=== PATIENT | female | born 1990 | race Caucasian/White ===

== ENCOUNTER 2017-09-17 10:36 | Observation (INO) | payer BC, OTHER ==
[~2017-09-17] VITALS: Ht 175.3 cm; Wt 106.6 kg
--- OUTSIDE RECORDS SUMMARY | 2017-09-17 10:42 | XMS REPORT ---
Author CHE Yang [facility] eClinicalWorks Address Unknown Phone Unavailable Care Team Providers Care Wireless Sales Expert Name Role Phone CHE SAWANT Unavailable Allergies No Known Allergies Problems Problem Type Condition Code Onset Dates Condition Status Assessment Encounter for immunization Z23 Active Medications No Known Medications Procedures Procedure Coding System Code Date SINGLE IMMUNIZATION ADMIN CPT-4 41404 Jul 12, 2016 FLUARIX QUAD P-FREE 3 AND UP .50 2015 CPT-4 44061 Jul 12, 2016 Results No Known Results Immunizations Vaccine Administration Date FLUARIX QUAD P-FREE 3 AND UP .50 2015Jul 12, 2016 Summary Purpose eClinicalWorks Submission
--- OUTSIDE RECORDS SUMMARY | 2017-09-17 10:42 | XMS REPORT ---
Author CHE Yang [facility] eClinicalWorks Address Unknown Phone Unavailable Care Team Providers Care Inspector Material Disposition Name Role Phone CHE SAWANT Unavailable Allergies No Known Allergies Problems Problem Type Condition Code Onset Dates Condition Status Assessment Encounter for immunization Z23 Active Medications No Known Medications Procedures Procedure Coding System Code Date SINGLE IMMUNIZATION ADMIN CPT-4 12902 Jul 01, 2015 FLUARIX QUAD (3 & UP)-GSK-2014 CPT-4 69789 Jul 01, 2015 Results No Known Results Immunizations Vaccine Administration Date FLUARIX QUAD (3 & UP)-GSK-2014Jul 01, 2015 Summary Purpose eClinicalWorks Submission
--- NOTE | 2017-09-17 10:58 | ED Back Pain ---
General Stated Complaint: BACK/ABD PAIN Source of Information: Patient Exam Limitations: No Limitations History of Present Illness Date Seen by Provider: Sep 17, 2017 Time Seen by Provider: 10:55 Initial Comments To ER with low right-sided back pain. This began yesterday as she felt a spasm in the area. She was seen at [facility] care given a shot of Toradol for the pain and Phenergan because she had some associated nausea. Today, the pain has spread to her abdomen and the bumps in the car on the ride here were very painful. She denies fevers or dysuria. She is tachycardic at 140 on arrival to ER walks very slowly as any movement or palpation of the abdomen significantly worsens her pain. Movement of the right hip also worsens the pain. She denies any loss of bowel or bladder control, saddle anesthesia Location: Lumbar Spine Timing/Duration: 1-2 Days Severity: Moderate Associated Symptoms: lower back pain Allergies and Home Medications Allergies Coded Allergies: erythromycin base (Verified Allergy, Unknown, 09/17/17) Constitutional: see HPI, chills, No fever EENTM: see HPI Respiratory: no symptoms reported Cardiovascular: no symptoms reported Gastrointestinal: abdominal pain, nausea Genitourinary: no symptoms reported Musculoskeletal: see HPI, back pain Skin: no symptoms reported Psychiatric/Neurological: No Symptoms Reported Past Pvnrliy-Ndzqvv-Noffwd Hx Patient Social History Recent Foreign Travel: No Contact w/Someone Who Travel: No Physical Exam Vital Signs Vital Sign - Last 12Hours 09/17/17 10:45 Temp 99.1 Pulse 172 Resp 18 B/P (MAP) 151/113 (126) Pulse Ox 98 Capillary Refill : General Appearance: No Apparent Distress, WD/WN, Obese (hirsutism consistent with her diagnosis of PCO S) HEENT: PERRL/EOMI, TMs Normal Neck: Full Range of Motion, Normal Inspection Cardiovascular: Normal Peripheral Pulses, Tachycardia Respiratory: Normal Breath Sounds, No Accessory Muscle Use, No Respiratory Distress Gastrointestinal: Normal Bowel Sounds, No Organomegaly, Soft, Rebound, Tenderness Genital/Rectal: Other (pelvic exam done with pain, RN at the bedside. It appears as though the patient's hymen is still intact, there is minimal whitish vaginal discharge. No lesions. Fleets enema given for the stool in the rectal vault. She does have increased pain with abduction of the right leg at the hip which would support musculoskeletal cause of this pain.) Neurologic/Psychiatric: Alert, Oriented x3, No Motor/Sensory Deficits Skin: Normal Color, Warm/Dry Progress/Results/Core Measures Results/Orders Lab Results Laboratory Tests Test 09/17/17 10:53 09/17/17 11:45 09/17/17 12:05 09/17/17 13:49 Range/Units White Blood Count 16.1 H 4.3-11.0 10^3/uL Red Blood Count 5.66 4.35-5.85 10^6/uL Hemoglobin 16.7 H 11.5-16.0 G/DL Hematocrit 48 35-52 % Mean Corpuscular Volume 84 80-99 FL Mean Corpuscular Hemoglobin 30 25-34 PG Mean Corpuscular Hemoglobin Concent 35 32-36 G/DL Red Cell Distribution Width 12.6 10.0-14.5 % Platelet Count 385 130-400 10^3/uL Mean Platelet Volume 9.8 7.4-10.4 FL Neutrophils (%) (Auto) 82 H 42-75 % Lymphocytes (%) (Auto) 12 12-44 % Monocytes (%) (Auto) 6 0-12 % Eosinophils (%) (Auto) 0 0-10 % Basophils (%) (Auto) 0 0-10 % Neutrophils # (Auto) 13.3 H 1.8-7.8 X 10^3 Lymphocytes # (Auto) 1.9 1.0-4.0 X 10^3 Monocytes # (Auto) 0.9 0.0-1.0 X 10^3 Eosinophils # (Auto) 0.0 0.0-0.3 10^3/uL Basophils # (Auto) 0.0 0.0-0.1 10^3/uL Neutrophils % (Manual) 88 % Lymphocytes % (Manual) 10 % Monocytes % (Manual) 2 % Eosinophils % (Manual) 0 % Basophils % (Manual) 0 % Band Neutrophils 0 % Blood Morphology Comment NORMAL Sodium Level 142 135-145 MMOL/L Potassium Level 4.0 3.6-5.0 MMOL/L Chloride Level 107 98-107 MMOL/L Carbon Dioxide Level 19 L 21-32 MMOL/L Anion Gap 16 H 5-14 MMOL/L Blood Urea Nitrogen 15 7-18 MG/DL Creatinine 1.15 0.60-1.30 MG/DL Estimat Glomerular Filtration Rate 57 BUN/Creatinine Ratio 13 Glucose Level 132 H 70-105 MG/DL Calcium Level 10.0 8.5-10.1 MG/DL Total Bilirubin 1.4 H 0.1-1.0 MG/DL Aspartate Amino Transf (AST/SGOT) 30 5-34 U/L Alanine Aminotransferase (ALT/SGPT) 51 0-55 U/L Alkaline Phosphatase 75 40-136 U/L C-Reactive Protein High Sensitivity 0.33 0.00-0.50 MG/DL Total Protein 8.3 H 6.4-8.2 GM/DL Albumin 5.0 H 3.2-4.5 GM/DL Serum Test, Qualitative NEGATIVE NEGATIVE Lactic Acid Level 1.84 0.50-2.00 MMOL/L Urine Color YELLOW Urine Clarity VERY CLOUDY H Urine pH 7 5-9 Urine Specific [place] 1.005 L 1.016-1.022 Urine Protein 1+ H NEGATIVE Urine Glucose (UA) NEGATIVE NEGATIVE Urine Ketones 2+ H NEGATIVE Urine Nitrite NEGATIVE NEGATIVE Urine Bilirubin NEGATIVE NEGATIVE Urine Urobilinogen NORMAL NORMAL MG/DL Urine Leukocyte Esterase 2+ H NEGATIVE Urine RBC (Auto) NEGATIVE NEGATIVE Urine RBC NONE /HPF Urine WBC 2-5 /HPF Urine Squamous Epithelial Cells 25-50 H /HPF Urine Crystals NONE /LPF Urine Amorphous Sediment MOD RHEA PHOSPHATE H /LPF Urine Bacteria NEGATIVE /HPF Urine Casts NONE /LPF Urine Mucus NEGATIVE /LPF Urine Culture Indicated NO Micro Results Microbiology 09/17/17 Genital Culture, Resulted Pending 09/17/17 Wet Prep - Final, Resulted My Orders Orders - CAN BENDER STULL HEWER Cbc With Automated Diff (09/17/17 10:53) Comprehensive Metabolic Panel (09/17/17 10:53) Ua Culture If Indicated (09/17/17 10:53) Blood Culture (09/17/17 10:53) Saline Lock/Iv-Start (09/17/17 10:53) Hcg,Qualitative Serum (09/17/17 10:53) Lactic Acid Analyzer (09/17/17 10:53) Ns Iv 1000 Ml (Sodium Chloride 0.9%) (09/17/17 11:00) Fentanyl Injection (Sublimaze Injection (09/17/17 11:00) Ondansetron Injection (Zofran Injectio (09/17/17 11:00) Ct Abd/Pelv W (Appendicitis) (09/17/17 10:53) Iohexol Injection (Omnipaque 350 Mg/Ml 1 (09/17/17 11:00) Ns (Ivpb) (Sodium Chloride 0.9% Ivpb Bag (09/17/17 11:00) Manual Differential (09/17/17 10:53) Ns Iv 1000 Ml (Sodium Chloride 0.9%) (09/17/17 12:00) Us Gallbladder [id number] (09/17/17 12:03) Ketorolac Injection (Toradol Injection) (09/17/17 12:15) Hs C Reactive Protein (09/17/17 12:33) Na Phos/Na Biphos Enema (Fleet Enema Leonardo (09/17/17 13:15) Fentanyl Injection (Sublimaze Injection (09/17/17 13:15) Wet Prep (09/17/17 13:50) Neisseria Gonorrhea Dna (09/17/17 13:50) Chlamydia Dna (09/17/17 13:50) Genital Culture (09/17/17 13:50) Fluconazole Tablet (Ed Only) (Diflucan T (09/17/17 14:15) Fentanyl Injection (Sublimaze Injection (09/17/17 15:00) Fentanyl Injection (Sublimaze Injection (09/17/17 15:00) Orphenadrine Injection (Norflex Injectio (09/17/17 15:15) Medications Given in ED Current Medications Medications Dose Ordered Sig/Charlie Route Start Time Stop Time Status Last Admin Dose Admin Fentanyl Citrate 50 mcg ONCE ONCE IVP 09/17/17 13:15 09/17/17 13:16 DC 09/17/17 13:29 50 MCG Fentanyl Citrate 75 mcg ONCE ONCE IVP 09/17/17 11:00 09/17/17 11:01 DC 09/17/17 11:01 75 MCG Iohexol 100 ml ONCE ONCE IV 09/17/17 11:00 09/17/17 11:02 DC 09/17/17 11:22 100 ML Ketorolac Tromethamine 30 mg ONCE ONCE IVP 09/17/17 12:15 09/17/17 12:16 DC 09/17/17 12:24 30 MG Ondansetron HCl 4 mg ONCE ONCE IVP 09/17/17 11:00 09/17/17 11:01 DC 09/17/17 11:00 4 MG Sodium Biphosphate/ Sodium Phosphate 1 ea ONCE ONCE DE 09/17/17 13:15 09/17/17 13:16 DC 09/17/17 15:04 1 EA Sodium Chloride 100 ml ONCE ONCE IV 09/17/17 11:00 09/17/17 11:02 DC 09/17/17 11:22 100 ML Vital Signs/I&O Vital Sign - Last 12Hours 09/17/17 10:45 Temp 99.1 Pulse 172 Resp 18 B/P (MAP) 151/113 (126) Pulse Ox 98 Diagnostic Imaging Diagonstic Imaging: CT Comments NAME: KRISTI ASENCIO [facility] REC#: [id number] PT STATUS: REG ER : 1990 PHYSICIAN: CAN BENDER APRN ADMIT DATE: 09/17/17/ER Draft Date of Exam:09/17/17 CT ABD/PELV W (APPENDICITIS) PROCEDURE: CT abdomen and pelvis with contrast, rule out appendicitis. TECHNIQUE: Multiple contiguous axial images were obtained through the abdomen and pelvis after the administration of intravenous contrast. INDICATION: Right lower quadrant pain with back pain and nausea. TECHNIQUE: Multiple contiguous axial images were obtained through the abdomen and pelvis after the uneventful bolus administration of intravenous contrast. Sagittal and coronal reformations were than performed. FINDINGS: Heart size is normal. The lung bases are clear. The liver is normal in size without focal lesions. Gallbladder is unremarkable. There is no biliary ductal dilatation. Spleen is normal. The pancreas and adrenal glands are unremarkable. There is some cortical scarring in the left kidney which is slightly smaller than the right. Aorta is nonaneurysmal. Bowel gas pattern is nonspecific. The appendix is normal. Some soft tissue prominence in the adnexa bilaterally. There is a moderate amount in the retained fecal material within the rectum, which may reflect some degree of constipation. The osseous structures are unremarkable. IMPRESSION: Moderate amount of retained fecal material in the rectum which may reflect some degree of constipation. Soft tissue prominence in the adnexa bilaterally. Underlying ovarian cyst cannot be excluded. If clinically warranted this could be better evaluated with ultrasound. Cortical scarring in the left kidney which is slightly smaller than the right. No other acute abnormality in the abdomen or pelvis. Specifically the appendix is normal. Dictated on workstation # [id number] Dict: 09/17/17 1136 Trans: 09/17/17 1151 [facility] [id number] Interpreted by: WOODROW CHRISTY MD Electronically signed by: Departure Communication (Admissions) Time/Spoke to Admitting Phy: 15:06 Communication I discussed the case with Dr. Cardona on-call for surgery given the patient's right lower quadrant abdominal tenderness to palpation. We will admit for appendicitis rule out. Heydi Perez, pain medicine and nausea medicine and he will evaluate in the morning. She is required multiple doses of fentanyl in the emergency room which does improve her symptoms but only temporarily. Impression Impression: Primary Impression: Low back pain Additional Impressions: Right lower quadrant abdominal pain Leukocytosis Disposition: 01 HOME, SELF-CARE Condition: Stable Admissions Decision to Admit Reason: Admit from ER (General) Decision to Admit/Date: Sep 17, 2017 Time/Decision to Admit Time: 15:07 Departure-Patient Inst. Referrals: NO,LOCAL PHYSICIAN (PCP/Family) Primary Care Physician CAN BENDER APRN Sep 17, 2017 10:58
[2017-09-17 11:00] LABS: BASOPHILS % (AUTO) 0 % (0-10); EOSINOPHILS % (AUTO) 0 % (0-10); HEMATOCRIT 48 % (35-52); HEMOGLOBIN 16.7 G/DL (11.5-16.0); LYMPHOCYTES # (AUTO) 1.9 X 10^3 (1.0-4.0); LYMPHOCYTES % (AUTO) 12 % (12-44); MEAN CORPUSCULAR HEMOGLOBIN 30 PG (25-34); MEAN CORPUSCULAR HGB CONC 35 G/DL (32-36); MEAN CORPUSCULAR VOLUME 84 FL (80-99); MEAN PLATELET VOLUME 9.8 FL (7.4-10.4); MONOCYTES # (AUTO) 0.9 X 10^3 (0.0-1.0); MONOCYTES % (AUTO) 6 % (0-12); NEUTROPHILS # (AUTO) 13.3 X 10^3 (1.8-7.8); NEUTROPHILS % (AUTO) 82 % (42-75); PLATELET COUNT 385 10^3/uL (130-400); RED BLOOD COUNT 5.66 10^6/uL (4.35-5.85); RED CELL DISTRIBUTION WIDTH 12.6 % (10.0-14.5); WHITE BLOOD COUNT 16.1 10^3/uL (4.3-11.0)
[2017-09-17] MEDS ORDERED: IOHEXOL 350 MG/ML 100 ML (OMNIPAQUE 350) VIAL IV ONE (11:00)
[2017-09-17] MEDS ORDERED: NS IV 1000 ML 1,000 ML IV SCH ×2 (11:00→12:00)
[2017-09-17] MEDS ORDERED: fentaNYL INJECTION 100 MCG/2 ML AMP IVP ONE ×4 (11:00→15:00)
[2017-09-17] MEDS ORDERED: ONDANSETRON 4 MG/2 ML (SDV) Z0FRAN IVP ONE (11:00)
[2017-09-17] MEDS ORDERED: NS 100 ML (IVPB) BAG IV ONE (11:00)
[2017-09-17 11:16] LABS: BILIRUBIN,TOTAL 1.4 MG/DL (0.1-1.0); CREATININE SERUM 1.15 MG/DL (0.60-1.30); TOTAL PROTEIN 8.3 GM/DL (6.4-8.2)
[2017-09-17 11:41] LABS: BAND NEUTROPHILS 0 %; LYMPHOCYTES % (MANUAL) 10 %; NEUTROPHILS % (MANUAL) 88 %
[2017-09-17 11:42] LABS: BASOPHILS % (MANUAL) 0 %; EOSINOPHILS % (MANUAL) 0 %; MONOCYTES % (MANUAL) 2 %; RBC MORPH NORMAL
--- NOTE | 2017-09-17 11:51 | Diagnostic Imaging Report ---
PROCEDURE: CT abdomen and pelvis with contrast, rule out appendicitis. TECHNIQUE: Multiple contiguous axial images were obtained through the abdomen and pelvis after the administration of intravenous contrast. INDICATION: Right lower quadrant pain with back pain and nausea. TECHNIQUE: Multiple contiguous axial images were obtained through the abdomen and pelvis after the uneventful bolus administration of intravenous contrast. Sagittal and coronal reformations were than performed. FINDINGS: Heart size is normal. The lung bases are clear. The liver is normal in size without focal lesions. Gallbladder is unremarkable. There is no biliary ductal dilatation. Spleen is normal. The pancreas and adrenal glands are unremarkable. There is some cortical scarring in the left kidney which is slightly smaller than the right. Aorta is nonaneurysmal. Bowel gas pattern is nonspecific. The appendix is normal. Some soft tissue prominence in the adnexa bilaterally. There is a moderate amount in the retained fecal material within the rectum, which may reflect some degree of constipation. The osseous structures are unremarkable. IMPRESSION: Moderate amount of retained fecal material in the rectum which may reflect some degree of constipation. Soft tissue prominence in the adnexa bilaterally. Underlying ovarian cyst cannot be excluded. If clinically warranted this could be better evaluated with ultrasound. Cortical scarring in the left kidney which is slightly smaller than the right. No other acute abnormality in the abdomen or pelvis. Specifically the appendix is normal. Dictated by: Dictated on workstation # [id number]
[2017-09-17 12:12] LABS: BILIRUBIN,URINE NEGATIVE (NEGATIVE); CLARITY,URINE VERY CLOUDY; COLOR,URINE YELLOW; GLUCOSE, URINE (UA) NEGATIVE (NEGATIVE); KETONES,URINE 2+ (NEGATIVE); LEUKOCYTE ESTERASE ,URINE 2+ (NEGATIVE); NITRITE,URINE NEGATIVE (NEGATIVE); PH,URINE 7 (5-9); PROTEIN,URINE 1+ (NEGATIVE); UROBILINOGEN,URINE NORMAL (NORMAL)
[2017-09-17] MEDS ORDERED: KETOROLAC 30 MG/ML VIAL IVP ONE (12:15)
[2017-09-17 12:23] LABS: AMORPHOUS SEDIMENT,UR MOD AMOR PHOSPHATE /LPF; BACTERIA,URINE NEGATIVE /HPF; SQUAMOUS EPITHELIAL CELL,UR 25-50 /HPF
[2017-09-17] MEDS ORDERED: FLEET ENEMA ADULT 1 EA BTL PR ONE (13:15)
--- NOTE | 2017-09-17 13:31 | Diagnostic Imaging Report ---
PROCEDURE: US Gallbladder. TECHNIQUE: Multiple real-time grayscale images were obtained over the right upper quadrant in various projections. INDICATION: Right flank pain with hip and leg pain and elevated white count. FINDINGS: There is increased echogenicity of the liver compatible with some fatty infiltration. There is focal fatty sparing near the gallbladder. There is no biliary ductal dilatation. Common bile duct measures 4 mm. There is no cholelithiasis, gallbladder wall thickening or pericholecystic fluid. Pancreas is not well-seen due to bowel gas. Right kidney is normal. There is no ascites. There was no right upper quadrant pain during the exam. Impression: Fatty infiltration of the liver with focal fatty sparing near the gallbladder fossa otherwise unremarkable right upper quadrant ultrasound. Dictated by: Dictated on workstation # [id number]
[2017-09-17] MEDS ORDERED: FLUCONAZOLE 150 MG TABLET (ED ONLY) PO ONE (14:15)
[2017-09-17] MEDS ORDERED: ORPHENADRINE 60 MG/2 ML (NORFLEX) AMP IV ONE (15:15)
[2017-09-17] MEDS ORDERED: ORPHENADRINE 60 MG/2 ML (NORFLEX) AMP IV PRN (16:30)
[2017-09-17] MEDS ORDERED: ONDANSETRON 4 MG/2 ML (SDV) Z0FRAN IV PRN (16:30)
[2017-09-17] MEDS ORDERED: fentaNYL INJECTION 100 MCG/2 ML AMP IV PRN (16:30)
[2017-09-17] MEDS: NS IV 1000 ML 1,000 ML IV SCH ×2 (16:35→23:54)
[2017-09-17] MEDS: CIPROFLOXACIN 400 MG/D5W 200 ML (PRE-MIX) IV SCH (16:47)
[2017-09-17 17:01] VITALS: BP 142/70
--- NOTE | 2017-09-17 17:07 | HISTORY AND PHYSICAL ---
DATE OF SERVICE: HISTORY OF PRESENT ILLNESS: The patient is a 27-year-old female who presented to the Emergency Department with abdominal pain. She reports that she first presented with pain along the right flank region and felt that this might have been a muscle strain or musculoskeletal in general. She states that she was seen in the [facility] and given Toradol and Phenergan for some mild nausea; however, the pain worsened and became more localized towards the right lower abdomen. She reports that upon ambulation her pain is worse. She does not report any fever nor chills. An ultrasound was performed which did not show any abnormalities of the gallbladder. A CT scan was performed which did show a large amount of stool in the rectal vault. The appendix was visualized and appeared to be normal and there were no inflammatory changes identified. She does have an elevated white count of 16,000. Urinalysis did show a leukocyte esterase positivity. PAST MEDICAL HISTORY: PCOS. PAST SURGICAL HISTORY: None. ALLERGIES: ERYTHROMYCIN. MEDICATIONS: None. SOCIAL HISTORY: Negative smoke, negative alcohol. FAMILY HISTORY: Noncontributory. REVIEW OF SYSTEMS: Well-nourished female currently guarded secondary to the abdominal pain. She is not experiencing any shortness of breath or difficulty breathing. No chest pain, palpitations, diaphoresis. Nausea yesterday; however, none today or any vomiting. She was given an enema and did have a large amount of formed stool. No red blood per rectum, no dark tarry stools. No fever or chills. No recent inadvertent weight loss. She does not report any dysuria. All other review of systems negative. PHYSICAL EXAMINATION: VITAL SIGNS: Temperature 99.1, blood pressure 151/113, pulse 172, respirations 18, pulse ox 98% on room air. CHEST: Clear with good breath sounds bilaterally. HEART: Regular, no murmurs. EXTREMITIES: No lower extremity edema, negative Homans sign. HEENT: No scleral icterus. NECK: No cervical lymphadenopathy. ABDOMEN: Soft, nondistended. There is a mild diffuse abdominal pain pattern, which appears to be mid as well as lower abdominal quadrant as well in the right lower abdominal quadrant. There are no peritoneal signs. LABORATORY DATA: WBC 16.2, hemoglobin 16.7, hematocrit 48, platelets of 385, BUN 15, creatinine 1.15. Beta hCG negative. Urine was positive for leukocyte esterase. A wet mount prep was also performed which was negative with chlamydia and gonorrhea pending. ASSESSMENT AND PLAN: A 27-year-old female with nonspecific abdominal pain with associated nausea. This may encompass ruptured ovarian cyst versus the possibility of pelvic inflammatory disease as well as an early appendicitis. We will admit her for observation, start IV fluids and a clear liquid diet as well as pain control. We will also start ciprofloxacin and Flagyl. We will reexamine her tomorrow. If she does have consistent or worsening pain especially in the right lower abdominal quadrant at McBurney's point, we will then proceed with a diagnostic laparoscopy. Job ID: [id number] DocumentID: [id number] Dictated Date: 09/17/2017 16:30:42 Resident Physician Date: 09/17/2017 17:06:02 Dictated By: ANNA WOLF MD MTDD
[2017-09-17] MEDS ORDERED: IBUP-1780 PO (17:39)
[2017-09-17] MEDS ORDERED: ONDA4TAB10 PO (17:39)
[2017-09-17] MEDS ORDERED: CETI10TA17 PO (17:44)
[2017-09-17] MEDS: metroNIDAZOLE 500 MG/100 ML IVPB (PRE-MIX) IV SCH ×2 (18:07→23:52)
[2017-09-17] MEDS: HYDROcodone/APAP 5 MG/325 MG (LORTAB) TAB PO PRN (19:17)
[2017-09-17 20:53] VITALS: BP 144/78
[2017-09-18 00:10] VITALS: BP 154/77
[2017-09-18] MEDS: IBUPROFEN 600 MG (MOTRIN) TAB PO PRN ×2 (03:08→15:47)
[2017-09-18] MEDS: CIPROFLOXACIN 400 MG/D5W 200 ML (PRE-MIX) IV SCH (03:53)
[2017-09-18 04:10] VITALS: BP 133/74
[2017-09-18 06:24] LABS: BASOPHILS % (AUTO) 0 % (0-10); EOSINOPHILS # (AUTO) 0.1 10^3/uL (0.0-0.3); EOSINOPHILS % (AUTO) 1 % (0-10); HEMATOCRIT 40 % (35-52); HEMOGLOBIN 13.9 G/DL (11.5-16.0); LYMPHOCYTES # (AUTO) 2.3 X 10^3 (1.0-4.0); LYMPHOCYTES % (AUTO) 21 % (12-44); MEAN CORPUSCULAR HEMOGLOBIN 30 PG (25-34); MEAN CORPUSCULAR HGB CONC 35 G/DL (32-36); MEAN CORPUSCULAR VOLUME 86 FL (80-99); MEAN PLATELET VOLUME 9.6 FL (7.4-10.4); MONOCYTES # (AUTO) 0.9 X 10^3 (0.0-1.0); MONOCYTES % (AUTO) 9 % (0-12); NEUTROPHILS # (AUTO) 7.2 X 10^3 (1.8-7.8); NEUTROPHILS % (AUTO) 69 % (42-75); PLATELET COUNT 271 10^3/uL (130-400); RED BLOOD COUNT 4.69 10^6/uL (4.35-5.85); RED CELL DISTRIBUTION WIDTH 12.5 % (10.0-14.5); WHITE BLOOD COUNT 10.6 10^3/uL (4.3-11.0)
[2017-09-18] MEDS: HYDROcodone/APAP 5 MG/325 MG (LORTAB) TAB PO PRN ×3 (06:41→15:39)
[2017-09-18 08:00] VITALS: BP 139/84
[2017-09-18] MEDS: metroNIDAZOLE 500 MG/100 ML IVPB (PRE-MIX) IV SCH (08:34)
[2017-09-18] MEDS: NS IV 1000 ML 1,000 ML IV SCH (08:35)
[2017-09-18 12:00] VITALS: BP 147/84
--- NOTE | 2017-09-18 13:32 | Progress Note (SOAP) ---
Subjective Date Seen by Provider: Sep 18, 2017 Time Seen by Provider: 13:00 Subjective/Events-last exam doing much better. no abdominal pain. still mild back pain but most likely musculoskeletal strain. WBC normal. no fever/chills. Objective Exam Vital Signs Date Time Temp Pulse Resp B/P (MAP) Pulse Ox O2 Delivery O2 Flow Rate FiO2 09/18/17 12:00 98.2 85 18 147/84 (105) 98 Room Air 09/18/17 08:00 98.3 76 18 139/84 (102) 96 Room Air 09/18/17 04:10 98.6 72 18 133/74 (93) 96 Room Air 09/18/17 00:10 99.0 83 18 154/77 (102) 96 Room Air 09/17/17 20:53 99.4 79 16 144/78 (100) 98 Room Air 09/17/17 17:01 98.6 80 18 142/70 (94) 100 Room Air 09/17/17 16:16 Room Air 09/17/17 15:52 82 18 97 I & O 09/18/17 07:00 Intake Total 4530 ml Output Total 400 ml Balance 4130 ml Capillary Refill : Less Than 3 Seconds General Appearance: No Apparent Distress HEENT: PERRL/EOMI Neck: Full Range of Motion Respiratory: Chest Non Tender, Lungs Clear, Normal Breath Sounds Cardiovascular: Regular Rate, Rhythm Gastrointestinal: normal bowel sounds, non tender, soft Extremity: Normal Capillary Refill Neurologic/Psychiatric: Alert, Oriented x3 Skin: Normal Color Lymphatic: No Adenopathy Results Lab Laboratory Tests 09/17/17 13:49: 09/18/17 06:05: White Blood Count 10.6, Red Blood Count 4.69, Hemoglobin 13.9, Hematocrit 40, Mean Corpuscular Volume 86, Mean Corpuscular Hemoglobin 30, Mean Corpuscular Hemoglobin Concent 35, Red Cell Distribution Width 12.5, Platelet Count 271, Mean Platelet Volume 9.6, Neutrophils (%) (Auto) 69, Lymphocytes (%) (Auto) 21, Monocytes (%) (Auto) 9, Eosinophils (%) (Auto) 1, Basophils (%) (Auto) 0, Neutrophils # (Auto) 7.2, Lymphocytes # (Auto) 2.3, Monocytes # (Auto) 0.9, Eosinophils # (Auto) 0.1, Basophils # (Auto) 0.0 Microbiology 09/17/17 Genital Culture, Resulted Pending 09/17/17 Wet Prep - Final, Resulted Assessment/Plan Assessment/Plan Assess & Plan/Chief Complaint UTI, low back strain. reg diet. PO bactim 5 days. home soon. Clinical Quality Measures DVT/VTE Risk/Contraindication: Risk Factor Score Per Nursin RFS Level Per Nursing on Admit: 3=High ANNA WOLF MD Sep 18, 2017 1:32 pm
[2017-09-18] MEDS ORDERED: HYDR-3812 PO (13:34)
[2017-09-18] MEDS ORDERED: SULF1TAB35 PO (13:34)
--- NOTE | 2017-09-18 13:35 | Discharge Inst-Surgical ---
D/C Lap Instructions-KIDO New, Converted, or Re-Newed RX: RX on Chart Follow Up PRN Activity as tolerated regular diet High Fiber Diet 25g or more per day Avoid Alcohol, Caffeine, Spicy Port [place] and Acid foods. Drink 64 fluid oz or more of fluids per day. Symptoms to Report: Fever over 101 degree F, Nausea/Vomiting If any problems/questions: Contact your physician or go to Emergency Room ANNA WOLF MD Sep 18, 2017 1:35 pm
[2017-09-18 16:00] VITALS: BP 140/78
== END 2017-09-18 13:34 | disposition home or self-care (01) ==
LOC: EDUNIT# 10:36 → ER 10:38 → UNDOADMOB 15:03 → 4TH 15:03 → UNDODISOB 09-18 16:00
PROVIDERS: ADMIT Surgery; ATTEND Surgery
DX: N39.0 Urinary tract infection, site not specified (principal); S39.012A Strain of muscle, fascia and tendon of lower back, initial encounter; E28.2 Polycystic ovarian syndrome; K59.00 Constipation, unspecified; X58.XXXA Exposure to other specified factors, initial encounter
CPT/HCPCS: 36415; 74177; 76705; 80053; 81000; 83605; 84703; 85007; 85025; 85027; 86141; 87040; 87070; 87210; 87491; 87591; 96361; 96374; 96375; 96376; G0378

== ENCOUNTER → 2017-09-19 | Outpatient (CLI) | payer BC ==
[~2017-09-19] MED LIST: CETI10TA17 PO; HYDR-3812 PO; IBUP-1780 PO; ONDA4TAB10 PO; SULF1TAB35 PO
--- NOTE | 2017-09-19 13:31 | Diagnostic Imaging Report ---
INDICATION: Muscle spasms in the low back. TIME OF EXAM: 1:25 p.m. Multiple views of the pelvis and bilateral hips were obtained. Femoral acetabular alignment is normal bilaterally. The joint spaces are well maintained. The femoral heads and necks appear intact. No fractures are identified. The rami are unremarkable. IMPRESSION: No acute bony abnormality is detected. Dictated by: Dictated on workstation # [id number]
== END ==
LOC: RAD 12:52
PROVIDERS: ATTEND Family Medicine
DX: M62.830 Muscle spasm of back (principal); M25.551 Pain in right hip; M25.552 Pain in left hip
CPT/HCPCS: 73523